=== PATIENT | male | born 1975 | race Caucasian/White ===

== ENCOUNTER → 2017-01-10 | Outpatient (CLI) | payer OTHER ==
[~2017-01-10] MED LIST: ASPI-482 PO; DULO20CA PO; HYDR25TA9 PO; IOHEXOL 180 MG/ML 10 ML VIAL. ONE; LISI10TA2 PO; LURA40TA PO; TRAZ50TA15 PO; methylPREDNISolone ACETATE 40 MG/ML VIAL. ONE; methylPREDNISolone ACETATE 80 MG/ML VIAL. ONE
--- NOTE | 2017-01-10 16:21 | PAIN ---
DATE OF SERVICE: 01/10/2017 INITIAL CONSULTATION FOR PAIN CLINIC DATE OF SERVICE: 01/10/2017 CHIEF COMPLAINT: Low back pain. HISTORY OF PRESENT ILLNESS: This is a 41-year-old male with history of pain in the low back bilaterally for about 20 years. The patient reports he hyperextended his back in 1995, had pain there ever since. It is getting worse over the past 6 months to a year or so, worse when he is on his feet, standing, walking, working, reports it is a constant aching pain, can be dull, sharp alternating, but mostly constant and dull in the low back itself, occasional radiation in the posterior gluteus, but not into the lower extremities to any significant extent. The patient reports he has had physical therapy x 2 which does help, especially the ultrasound treatment he has had on the low back has helped as well, but otherwise it returns about a day later. The patient reports it awakens him from sleep at night at least twice a night, but not every night. It does not affect his bowel or bladder control, but does affect his ability to walk. He is using a cane when walking in his right hand. The patient has tried multiple medications over the years including Voltaren gel. He is taking Motrin, Advil, Tylenol as well only with minor results in decreasing the pain. The patient reports no significant radiation to the lower extremities and no weakness of the lower extremities. The patient did have an MRI scan of the lumbar spine showing minimal degenerative changes of lumbar spine with mild degenerative disk disease at L4-L5, bilateral spondylolysis at L5 without significant spondylolisthesis of L5 on S1 and mild broad posterior annular disk bulge at L5-S1 as well as L4-L5 and degenerative facet changes at each of those levels as well. Again, the patient has tried physical therapy with some mixed results and only about one day of improvement after the therapy is ended. The patient has had no other modalities at this time. The patient rates his disability rate from 0-10, 10 being the worst, as a 6 with family and home responsibilities, 8 with recreation, 9 with occupation, 1 with social activities, 7 with self care and 4 with life support activities. PAST MEDICAL HISTORY: Significant for hearing loss, shortness of breath, asthma, cigarette smoking and tobacco chewing, hypertension, arthritis. PREVIOUS SURGERY: Includes appendectomy and abscess drain on his back about a month ago. CURRENT MEDICATIONS: Include Cymbalta, lisinopril, trazodone, hydrochlorothiazide, daily baby aspirin and Latuda. ALLERGIES: The patient has no known drug allergies. FAMILY HISTORY: Significant for heart disease, cancer, diabetes, and depression. SOCIAL HISTORY: The patient smokes about 1 pack a day or less, also uses chewing tobacco, drinks about 2 alcoholic drinks a month on average. Lives locally and works as a cook at a dairy restaurant. REVIEW OF SYSTEMS: The patient's review of systems is positive for those items mentioned in history of present illness. All systems reviewed and otherwise negative. It is complete, full and well documented on the patient's chart. PHYSICAL EXAMINATION: VITAL SIGNS: The patient's blood pressure 145/92, pulse 73, respirations 16, temperature 97.6 degrees Fahrenheit, height is 5 feet 9 inches, weight is 312 pounds. GENERAL: The patient is awake, alert, oriented, appropriate, very pleasant demeanor. HEENT: Head shows normocephalic, atraumatic. Extraocular movements are intact, symmetrical. Oral cavity, mucous membranes are moist and pink. Dentition is intact. NECK: Shows anterior throat supple without palpable lymphadenopathy noted. Swallow reflex is symmetrical. Neck shows full rotational motion of the cervical spine without difficulty or tenderness. CHEST: Normal on inspection. Breath sounds clear to auscultation bilaterally. HEART: Shows S1 and S2 clear. ABDOMEN: Soft, nontender, nondistended. No palpable organomegaly, no rebound or guarding demonstrated. BACK: Shows spine grossly midline. Normal appearing thoracic kyphosis and lumbar lordotic curvature. No previous bruises, lesions, rashes or scars are noted. The patient's lumbar paraspinous muscle shows some symmetry with inspection, with palpation shows some moderate tenderness with palpation throughout the upper, middle and lower distributions bilaterally, right essentially equal to left. No tenderness over the sacrum or sacroiliac regions. The patient shows good rotational motion of the lumbar spine, both laterally greater than 10 degrees right and left as well as extension greater than 10 degrees, forward flexion at 45 degrees without significant pain reported. The patient's lower extremities showed deep tendon reflexes at 2+ in the patellar, 1+ tendo calcaneus tendons, are equal. Motor exam is strong with 5/5 dorsiflexion, extension, quadriceps and hamstring flexion and symmetrical. Peripheral pulses are 1+ posterior tibial and dorsalis pedis pulses. No peripheral edema is noted. Straight leg raise noted to be negative for reproduction of radicular symptoms. Gaenslen's and Kt's maneuvers are negative bilaterally as well. The patient is able to stand, stand on his toes without difficulty or loss of balance with loss of normal appearing gait, but with his cane in his right hand, appears to favor his right lower extremity to a mild extent with a slight limp in his gait. IMPRESSION: 1. This is a 41-year-old male with about a 20-year history, increased low back pain over the past 6 months to a year with occasional radiation, but mostly in the back itself. 2. MRI scan of lumbar spine as noted. 3. Obesity. 4. Hypertension. 5. Cigarette smoking. 6. Arthritis. PLAN: Options were discussed with the patient including conservative medical management, physical therapy and interventional techniques. He would like to pursue interventional techniques. We discussed a lumbar epidural steroid injection using description as well as anatomical models to describe the procedure. Risks were then discussed including, but not limited to bleeding, infection, possibility of epidural hematoma and subsequent neurologic compromise, dural puncture, headaches, spinal cord and/or nerve damage, side effects of steroid medication and poor results regarding pain control. The patient understands and wishes to proceed. The patient will return to clinic in approximately 2 weeks for followup, was counseled on return appointment, activity level and side effects to be aware of. DIAGNOSES: Lumbar degenerative disk disease and lumbar spondylosis. PROCEDURES: Lumbar epidural steroid injection, translaminar approach at the L4-L5 level using C-arm fluoroscopic guidance under sterile prep and drape using local anesthetic. MEDICATIONS INJECTED: A total of 120 mg of Depo-Medrol plus total of 10 mL of preservative-free normal saline and 2 mL of Isovue for contrast. CONDITION AT DISCHARGE: Stable. The patient tolerated procedure well, had no complications. BRITTNEY LINDER MD DR: DANE/sherri JOB#: [id number] / [id number]
== END | disposition home or self-care (01) ==
LOC: PNCL 08:23
PROVIDERS: ATTEND Anesthesiology
DX: M51.36 Other intervertebral disc degeneration, lumbar region (principal); M47.816 Spondylosis without myelopathy or radiculopathy, lumbar region; H91.90 Unspecified hearing loss, unspecified ear; J45.909 Unspecified asthma, uncomplicated; F17.200 Nicotine dependence, unspecified, uncomplicated; I10 Essential (primary) hypertension; M19.91 Primary osteoarthritis, unspecified site; E66.9 Obesity, unspecified; Z83.3 Family history of diabetes mellitus
CPT/HCPCS: 62323; J1030; J1040

== ENCOUNTER → 2017-02-07 | Outpatient (CLI) | payer OTHER ==
[~2017-02-07] MED LIST changes: -IOHEXOL 180 MG/ML 10 ML VIAL. ONE; -methylPREDNISolone ACETATE 40 MG/ML VIAL. ONE; -methylPREDNISolone ACETATE 80 MG/ML VIAL. ONE
--- NOTE | 2017-02-07 11:49 | PAIN ---
DATE OF SERVICE: 02/07/2017 DIAGNOSES: Lumbar degenerative disk disease with lumbar spondylosis. HISTORY OF PRESENT ILLNESS: The patient is a 41-year-old male who returns for followup status post lumbar epidural steroid injections x 2. The patient reports about 40% improvement overall and is doing much better than his last injection. He has been increasing his activity with greater ease and comfort. He feels that he is doing quite well. The patient reports the pain is only on and off, now it is not constant, still across the low back when he feels it, somewhat worse on the left than the right at this time, but reports he has been increasing activity with greater ease and comfort and sleeping well at night about 6-8 hours a night, with not awakening from sleep at all. The patient reports the pain only comes and goes down in the low back. The patient reports it can be constant, but again much better than it was. He was walking a total of 50 minutes yesterday with no discomfort or disability to do this and reports he felt better after he got home after his walk yesterday and had no increasing pain. The patient reports no new motor or sensory deficits, no new bowel or bladder incontinence or other complaints, rates his pain as 7 on a scale of 10 at its worse, 5 on average and 3 at least and is a 3 today. PHYSICAL EXAMINATION: VITAL SIGNS: The patient's blood pressure 159/92, pulse 80, respirations 20, temperature 98.2 degrees Fahrenheit, weight is 311 pounds. GENERAL: The patient is awake, alert, oriented, appropriate, very pleasant demeanor. HEENT: Shows normocephalic, atraumatic. Extraocular movements are intact and symmetrical. Oral cavity shows mucous membranes are moist and pink. Dentition is intact. NECK: Shows anterior throat supple without palpable lymphadenopathy noted. Swallow reflex is symmetrical. CHEST: Shows normal on inspection. Breath sounds clear to auscultation bilaterally. HEART: Shows S1 and S2 clear. ABDOMEN: Obese, soft, nontender, nondistended. No palpable organomegaly noted. No rebound or guarding demonstrated. BACK: Shows spine grossly in midline. Normal appearing thoracic kyphosis and normal appearing lumbar lordotic curvature. Lumbar paraspinous muscle shows symmetrical on inspection, with palpation shows some mild tenderness bilaterally, but only mildly so and only diffusely without radiation. Good rotational motion both laterally as well as extension and flexion of lumbar spine without difficulty or pain reported as well. EXTREMITIES: The patient's lower extremities showed deep tendon reflexes 2+ in the patella, 1+ in tendocalcaneus tendons. Motor exam remains strong with 5/5 dorsiflexion, extension, quadriceps and hamstring flexion and symmetrical. Peripheral pulses are 1+ posterior tibial and dorsalis pedis pulses. No peripheral edema is noted. No clubbing or cyanosis. Options were discussed with the patient, and the patient's old chart was reviewed as his current medication regimen updated. Current review of systems updated today as well. We will hold on any further injections today as he is doing quite well and will increase his activity as tolerated. I encouraged him to keep doing some stretching and strengthening exercises and stay as active as he is comfortable with. If the pain begins to return, we will have him return for additional injections, but at this time, we will have him increase his activity and see how he performs. BRITTNEY LINDER MD DR: DANE/sherri JOB#: [id number] / [id number]
== END | disposition home or self-care (01) ==
LOC: PNCL 08:54
PROVIDERS: ATTEND Anesthesiology
DX: M51.36 Other intervertebral disc degeneration, lumbar region (principal); M47.896 Other spondylosis, lumbar region
CPT/HCPCS: 99212

== ENCOUNTER → 2017-04-25 | Outpatient (CLI) | payer OTHER ==
[~2017-04-25] MED LIST changes: -ASPI-482 PO; -DULO20CA PO; -HYDR25TA9 PO; +IOHEXOL 180 MG/ML 10 ML VIAL.; -LISI10TA2 PO; -LURA40TA PO; -TRAZ50TA15 PO; +methylPREDNISolone ACETATE 40 MG/ML VIAL.; +methylPREDNISolone ACETATE 80 MG/ML VIAL.
== END | disposition home or self-care (01) ==
LOC: PNCL 08:24
DX: M47.816 Spondylosis without myelopathy or radiculopathy, lumbar region (principal); M51.36 Other intervertebral disc degeneration, lumbar region
CPT/HCPCS: 62323; J1030; J1040

== ENCOUNTER → 2018-04-04 | Outpatient (CLI) | payer OTHER ==
[~2018-04-04] MED LIST changes: +ASPI-482 PO; +BUPR150T8 PO; +DULO20CA PO; +HYDR-2145 PO; -IOHEXOL 180 MG/ML 10 ML VIAL.; +IOHEXOL 180 MG/ML 10 ML VIAL. ONE; +LISI-130 PO; +LISI10TA2 PO; +LURA40TA PO; +TRAZ-85 PO; -methylPREDNISolone ACETATE 40 MG/ML VIAL.; +methylPREDNISolone ACETATE 40 MG/ML VIAL. ONE; -methylPREDNISolone ACETATE 80 MG/ML VIAL.; +methylPREDNISolone ACETATE 80 MG/ML VIAL. ONE
--- NOTE | 2018-04-04 11:44 | PAIN ---
DATE OF SERVICE: 04/04/2018 PROGRESS NOTE FOR PAIN CLINIC DIAGNOSES: Lumbar degenerative disk disease, lumbar radiculopathy with lumbar spondylosis. HISTORY OF PRESENT ILLNESS: The patient is 42-year-old male who returns for followup status post lumbar epidural steroid injections in the past, most recently almost a year ago, 04/25/2017. The patient did very well with about 50% improvement overall. The patient reports he has been weaning to get back in over the past few months. The pain returned over the past 2-3 months, increasing in the low back and bilateral lower extremities, mostly in the lateral anterior thighs, anterior medial thighs, posterior gluteus and across the low back, right essentially equal to left. The patient reports he walks every day about an hour and 15 minutes to work and back and this has been doing well until the last few months, the pain has been returning and has been limiting his ability to walk at an even pace. The patient reports no new motor or sensory deficits, no new bowel or bladder incontinence. The patient did not do any other therapies recently. He is doing some exercising, again walking significant distances every day to and from work. The patient reports no new motor or sensory deficits, rates his pain as a 9 on a scale of 10 at its worst, 7 on average and a 3 at its least and is a 7 today. The patient reports no new motor or sensory deficits, no bowel or bladder incontinence. PHYSICAL EXAMINATION: VITAL SIGNS: The patient's blood pressure is 139/83, pulse 79, respirations 18, temperature 98.0 degrees Fahrenheit, height is 5 feet 9 inches, weight is 311 pounds. GENERAL: The patient is awake, alert, oriented, appropriate, very pleasant demeanor. HEENT: Head shows normocephalic, atraumatic. Extraocular movements are intact and symmetrical. Oral cavity, mucous membranes are moist and pink. Dentition intact. NECK: Shows anterior throat supple without palpable lymphadenopathy noted. Swallow reflex is symmetrical. CHEST: Shows normal with inspection. Breath sounds are clear to auscultation bilaterally. HEART: Shows S1, S2 clear. No murmurs auscultated. ABDOMEN: Soft, nontender, nondistended. No palpable organomegaly is noted. No rebound or guarding demonstrated. BACK: Shows spine grossly in the midline. Normal appearing thoracic kyphosis and lumbar lordotic curvature. Lumbar paraspinous muscle shows symmetrical on inspection, with palpation shows some moderate tenderness diffusely, but only diffusely bilaterally without radiation. No trigger points. No atrophy, hypertrophy, no asymmetry. The patient's back shows good rotational motion both laterally greater than 10 degrees right and left as well as extension greater than 10 degrees, forward flexion 45 degrees without significant pain reported. EXTREMITIES: The patient's lower extremities show deep tendon reflexes 2+ in the patellar, 1+ tendo calcaneus tendons. Motor exam is strong with 5/5 dorsiflexion, extension, quadriceps and hamstring flexion and equal. Peripheral pulses are 1+ posterior tibia. No peripheral edema is noted. Pulses are 1+. Options were discussed with the patient. The patient's old chart was reviewed as his current medication regimen updated. Current review of systems updated today as well. We will proceed with a lumbar epidural steroid injection, the first in this series with fluoroscopic guidance. Risks were again discussed including, but not limited to bleeding, infection, possibility of epidural hematoma, subsequent neurologic compromise, dural puncture, headaches, spinal cord and/or nerve damage, side effects of steroid medication and poor results regarding pain control. The patient understands and wished to proceed. The patient will return to clinic in approximately 2 weeks for followup. He was counseled on return appointment, activity level and side effects to be aware of. DIAGNOSES: Lumbar radiculopathy with lumbar spondylosis, lumbar degenerative disk disease. PROCEDURES: Lumbar epidural steroid injection, translaminar approach at L4-L5 level using C-arm fluoroscopic guidance under sterile prep and drape using local anesthetic. MEDICATION INJECTED: A total of 120 mg Depo-Medrol plus 10 mL of preservative-free normal saline and 2 mL of Isovue for contrast. CONDITION AT DISCHARGE: Stable. The patient tolerated procedure well, had no complications. BRITTNEY LINDER MD DR: DANE/sherri JOB#: [id number] / [id number]
== END | disposition home or self-care (01) ==
LOC: PNCL 09:40
PROVIDERS: ATTEND Anesthesiology
DX: M51.16 Intervertebral disc disorders with radiculopathy, lumbar region (principal); M47.26 Other spondylosis with radiculopathy, lumbar region
CPT/HCPCS: 62323; J1030; J1040; Q9965

== ENCOUNTER → 2018-04-18 | Outpatient (CLI) | payer OTHER ==
--- NOTE | 2018-04-18 11:28 | PAIN ---
DATE OF SERVICE: 04/18/2018 PROGRESS NOTE FOR PAIN CLINIC DIAGNOSES: Lumbar degenerative disk disease with lumbar spondylosis and lumbar radiculopathy. HISTORY OF PRESENT ILLNESS: The patient is a 42-year-old male who returns for followup status post lumbar epidural steroid injection x 1 in this series. The patient reports only about a 25% improvement after the last injection, the pain across the low back. He reports significant pain is constant, aching, worse with walking, standing, change in positions. The patient reports that his job is becoming demanding with his physical activity. He is walking to work about an hour and a half each way to and from and is on his feet most of his working days. 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 The patient reports the pain is 7 on a scale of 10 at its worst, 7 on average and a 5 at its least and is a 7 today. The patient reports the pain has been more constant, severe across the low back and the bilateral lower extremities, right and left, mostly in the posterior gluteus, lateral thigh, anterior thighs with standing and walking especially. The patient reports it is better with sitting or lying down. He is not getting much of this during his working day. It does not awaken him from sleep at night. The patient reports no new motor or sensory deficits and no new bowel or bladder incontinence or other complaints. PHYSICAL EXAMINATION: VITAL SIGNS: Today, the patient's blood pressure is 137/75, pulse is 72, respirations 18 and temperature 97.6 degrees Fahrenheit. Height is 5 feet 9 inches and weight is 368 pounds. GENERAL: The patient is awake, alert, oriented, appropriate and very pleasant demeanor. HEENT: Head shows normocephalic and atraumatic. Extraocular muscles are intact and symmetrical. Oral cavity: Mucous membranes are moist and pink. Dentition is intact. NECK: Shows anterior throat supple without palpable lymphadenopathy noted. Swallow reflex symmetrical. CHEST: Shows normal on inspection. Breath sounds clear to auscultation bilaterally. HEART: Shows S1 and S2 clear. No murmurs auscultated. ABDOMEN: Soft, nontender, nondistended and obese. No palpable organomegaly is noted. No rebound or guarding demonstrated. BACK: Shows spine grossly in the midline. Normal-appearing thoracic kyphosis and lumbar lordotic curvature. Lumbar paraspinous musculature shows symmetrical on inspection. On palpation shows some moderate tenderness diffusely but only diffusely without significant radiation. The patient has good rotational motion of the lumbar spine, both laterally as well as extension and flexion without significant difficulty. EXTREMITIES: Lower extremities show deep tendon reflexes at 2+ in the patellar, 1+ at the tendo-calcaneus tendons are equal. Motor exam is strong with 5/5 dorsiflexion, extension, quadriceps and hamstring flexion equal. Peripheral pulses are 1+. No peripheral edema is noted bilaterally. Options were discussed with the patient. The patient's old chart was reviewed as well as his current medication regimen updated. Current review of systems updated today as well. We will proceed with a second in the series of lumbar epidural steroid injection today with fluoroscopic guidance. Risks were again discussed including, but not limited to bleeding, infection, possibility of epidural hematoma and subsequent neurological compromise, dural puncture, headaches, spinal cord and/or nerve damage, side effects of steroid medication and poor results regarding pain control. The patient understands and wished to proceed. The patient will return to the clinic in approximately 2 weeks for followup, was counseled as to return appointment, activity level and side effects to be aware of. DIAGNOSES: Lumbar radiculopathy with lumbar degenerative disk disease and lumbar spondylosis. PROCEDURE: Lumbar epidural steroid injection, translaminar approach, L4-L5 level using C-arm fluoroscopic guidance under sterile prep and drape using local anesthetic. MEDICATION INJECTED: A total of 120 mg Depo-Medrol plus 10 mL of preservative-free normal saline and 2 mL of Isovue for contrast. CONDITION AT DISCHARGE: Stable. The patient tolerated the procedure well and had no complications. BRITTNEY LINDER MD DR: DANE/sherri JOB#: [id number] / [id number]
== END | disposition home or self-care (01) ==
LOC: PNCL 09:10
PROVIDERS: ATTEND Anesthesiology
DX: M51.16 Intervertebral disc disorders with radiculopathy, lumbar region (principal); M47.26 Other spondylosis with radiculopathy, lumbar region
CPT/HCPCS: 62323; J1030; J1040; Q9965

== ENCOUNTER → 2018-05-30 | Outpatient (CLI) | payer OTHER ==
[~2018-05-30] MED LIST changes: +TRAZ-118 PO; -TRAZ-85 PO
--- NOTE | 2018-05-31 05:50 | PAIN ---
DATE OF SERVICE: 05/30/2018 DIAGNOSES: Lumbar radiculopathy with lumbar degenerative disk disease and lumbar spondylosis. HISTORY OF PRESENT ILLNESS: The patient is a 42-year-old male who returns for followup status post lumbar epidural steroid injection x 2, last seen 04/18/2018. The patient did well, reports only about a 10% overall improvement, initially was about 50%, but now is only about 10, but he has been walking, better with greater ease and comfort and reports this has been the biggest change that he has noticed. He is still sleeping well at night. It is not awakening him from sleep. He has been walking more with greater ease, traveling little more as well. The patient reports still significant pain in the low back itself and into the bilateral lower extremities, right essentially equal to left as it was before in the hips and in the lateral and anterior thighs. The patient reports pain is an 8 on a scale of 10 on average, 8 at its worst and a 6 at its least and is a 6 today. The patient reports it is more constant, aching, dull, sometimes shooting, but mostly cramping and constant in the low back. The patient reports no new motor or sensory deficits. No new bowel or bladder incontinence or other complaints. PHYSICAL EXAMINATION: VITAL SIGNS: The patient's blood pressure is 139/80, pulse 79, respirations are 18, temperature is 98.6 degrees Fahrenheit, height is 5 feet 9 inches, weight is 306 pounds. GENERAL: The patient is awake, alert, oriented, appropriate, very pleasant demeanor. HEENT: Exam shows normocephalic, atraumatic. Extraocular movements are intact and symmetrical. Oral cavity: Mucous membranes moist and pink. Dentition is intact. NECK: Shows anterior throat supple without palpable lymphadenopathy noted. Swallow reflex is symmetrical. CHEST: Shows normal on inspection. Breath sounds are clear to auscultation bilaterally. HEART: Shows S1, S2 clear. No murmurs auscultated. ABDOMEN: Soft, nontender, nondistended. No palpable organomegaly is noted. No rebound or guarding demonstrated. BACK: Shows spine grossly in the midline, normal appearing thoracic kyphosis and lumbar lordotic curvature. Lumbar paraspinous muscle shows symmetrical on inspection. On palpation shows some moderate tenderness, but only diffusely with palpation in the lower lumbar distribution and without radiation. No trigger points, no asymmetry. No tenderness over the spinous processes, sacrum or sacroiliac region. The patient has good rotational motion of lumbar spine, both laterally greater than 10 degrees right and left as well as extension greater than 10 degrees, forward flexion 45 degrees without significant pain as well. EXTREMITIES: Lower extremities shows deep tendon reflexes 2+ in the patellar and 1+ tendo calcaneus tendons are equal. Motor exam is strong with 5/5 dorsiflexion, extension, quadricep and hamstring flexion and symmetrical. Peripheral pulses are 1+ posterior tibia. No peripheral edema is noted bilaterally. Options were discussed with the patient. The patient's old chart was reviewed as was his current medication regimen updated. Current review of systems is updated today as well and we will proceed with a third in the series of lumbar epidural steroid injection today with fluoroscopic guidance. Risks were again discussed including, but not limited to bleeding, infection, possibility of epidural hematoma, subsequent neurologic compromise, dural puncture, headaches, spinal cord and/or nerve damage, side effects of steroid medication and poor results regarding pain control. The patient understands and wished to proceed. The patient will return to the clinic in approximately 2 weeks for followup, was counseled on return appointment, activity level and side effects to be aware of. DIAGNOSES: Lumbar radiculopathy with lumbar degenerative disk disease, lumbar spondylosis. PROCEDURES: Lumbar epidural steroid injection, translaminar approach at the L4-L5 level using C-arm fluoroscopic guidance under sterile prep and drape using local anesthetic. MEDICATION INJECTED: A total of 120 mg Depo-Medrol plus 10 mL of preservative-free normal saline and 2 mL of Isovue for contrast. CONDITION AT DISCHARGE: Stable. The patient tolerated the procedure well, had no complications. BRITTNEY LINDER MD DR: DANE/sherri JOB#: [id number] / [id number]
== END | disposition home or self-care (01) ==
LOC: PNCL 10:07
PROVIDERS: ATTEND Anesthesiology
DX: M51.16 Intervertebral disc disorders with radiculopathy, lumbar region (principal); M47.26 Other spondylosis with radiculopathy, lumbar region
CPT/HCPCS: 62323; J1030; J1040; Q9965